=== PATIENT | male | born 1990 | race Caucasian/White ===

== ENCOUNTER 2016-09-08 20:28 | Emergency (ER) | payer OTHER ==
[~2016-09-08] VITALS: Ht 162.5 cm; Wt 108.9 kg
[~2016-09-08 20:28] MED LIST: AMOXICILLIN500 M2 PO; ANUSOL-HC25 MG RC; BACTRIM DS 8001 TA1 PO; FLOMAX0.4 MG PO; HYDROCODONE BIT1 T11 PO; IBU-8800 MG PO; MEDROL DOSEPAK4 MG PO; MOTRIN800 MG PO; Motrin,Rufen800 MG PO; NKHM; PRILOSEC20 MG PO; PYRIDIUM200 M1 PO; VICODIN ES 7501 TAB PO; ZANTAC 7575 M1 PO; ZITHROMAX Z PA250 MG PO; ZOFRAN ODT4 MG SL; ZYRTEC10 MG PO; Zofran4 MG PO
[2016-09-08 20:35] VITALS: BP 120/65
[2016-09-08] MEDS ORDERED: NAPROSYN500 MG PO (22:17)
== END 2016-09-08 23:03 | disposition home or self-care (01) ==
LOC: ED 20:28
DX: R07.9 Chest pain, unspecified (principal); Z87.442 Personal history of urinary calculi; F41.9 Anxiety disorder, unspecified

== ENCOUNTER 2017-02-26 18:24 | Emergency (ER) | payer OTHER ==
[~2017-02-26 18:24] MED LIST changes: +NAPROSYN500 MG PO
[2017-02-26 18:30] VITALS: BP 129/54
[2017-02-26] MEDS ORDERED: AMOXICILLIN500 M2 PO (19:00)
[2017-02-26] MEDS ORDERED: ZYRTEC10 MG PO (19:00)
== END 2017-02-26 19:04 | disposition home or self-care (01) ==
LOC: ED 18:24
DX: J01.90 Acute sinusitis, unspecified (principal)

== ENCOUNTER 2017-09-07 09:07 | Emergency (ER) | payer OTHER ==
[~2017-09-07] VITALS: Wt 113.4 kg
[2017-09-07 09:08] VITALS: BP 111/68
[2017-09-07] MEDS ORDERED: ROBAXIN500 M1 PO (10:10)
[2017-09-07] MEDS ORDERED: MOBIC7.5 MG PO (10:10)
[2017-09-07] MEDS ORDERED: RID COMPLETE 11 EACH TP (10:19)
== END 2017-09-07 11:20 | disposition home or self-care (01) ==
LOC: ED 09:07
DX: S13.4XXA Sprain of ligaments of cervical spine, initial encounter (principal); B85.2 Pediculosis, unspecified; X58.XXXA Exposure to other specified factors, initial encounter; Y93.89 Activity, other specified; Y92.89 Other specified places as the place of occurrence of the external cause; Y99.8 Other external cause status

== ENCOUNTER 2017-10-23 15:20 | Emergency (ER) | payer OTHER ==
[~2017-10-23] VITALS: Ht 160 cm; Wt 111.1 kg
[~2017-10-23 15:20] MED LIST changes: +MOBIC7.5 MG PO; +RID COMPLETE 11 EACH TP; +ROBAXIN500 M1 PO
[2017-10-23 15:22] VITALS: BP 121/87
[2017-10-23] MEDS ORDERED: SEPTDS PO (15:33)
[2017-10-23] MEDS ORDERED: KEFLEX500 M1 PO (15:33)
== END 2017-10-23 15:55 | disposition home or self-care (01) ==
LOC: ED 15:20
DX: L02.415 Cutaneous abscess of right lower limb (principal); G89.29 Other chronic pain; Z87.442 Personal history of urinary calculi

== ENCOUNTER 2018-04-26 09:44 | Emergency (ER) | payer SELFPAY ==
[~2018-04-26] VITALS: Ht 162.5 cm; Wt 113.4 kg
[~2018-04-26 09:44] MED LIST changes: +KEFLEX500 M1 PO; +SEPTDS PO
[2018-04-26 09:45] VITALS: BP 118/41
[2018-04-26] MEDS ORDERED: AMOXICILLIN500 M2 PO (10:50)
== END 2018-04-26 10:54 | disposition home or self-care (01) ==
LOC: ED 09:44
DX: J45.909 Unspecified asthma, uncomplicated (principal)

== ENCOUNTER 2018-07-13 09:15 | Emergency (ER) | payer SELFPAY ==
[~2018-07-13] VITALS: Ht 160 cm; Wt 113.4 kg
[2018-07-13 09:42] LABS: BASO # 0.1 10*3/uL (0.0-0.1); BASO % 0.7 % (0.0-1.0); EOS # 0.3 10*3/uL (0.0-0.4); EOS % 3.2 % (1.0-4.0); HEMOGLOBIN 16.1 g/dl (14.0-18.0); LYMPH # 1.9 10*3/uL (1.3-4.4); LYMPH % 20.5 % (27.0-41.0); MEAN CELL VOLUME 88.6 fl (80.0-94.0); MEAN CORPUSCULAR HGB 29.7 pg (27.0-31.0); MEAN CORPUSCULAR HGB CONC 33.5 g/dl (33.0-37.0); MEAN PLATELET VOLUME 9.7 fl (9.6-12.3); MONO # 0.9 10*3/uL (0.1-1.0); MONO % 9.6 % (3.0-9.0); NEUT % 65.5 % (47.0-73.0); PLATELET COUNT AUTOMATED 258 10*3/uL (130-400); RED BLOOD COUNT 5.42 10*6/uL (4.50-5.90); RED CELL DISTRI WIDTH 12.5 % (0-14.5); WHITE BLOOD COUNT 9.1 10*3/uL (4.8-10.8)
[2018-07-13 09:56] LABS: ALBUMIN 3.8 gm/dl (3.1-4.5); ALKALINE PHOSPHATASE 71 U/L (45-117); BUN 10 mg/dl (7-24); CHLORIDE 106 mmol/L (98-107); CREATININE 1.13 mg/dL (0.70-1.30); SGOT/AST 19 IU/L (3-35); SGPT/ALT 38 U/L (12-78); SODIUM 140 mmol/L (136-145); TOTAL PROTEIN 7.3 gm/dL (6.4-8.2)
[2018-07-13 10:32] LABS: BILIRUBIN NEGATIVE (NEGATIVE); BLOOD 3+ (NEGATIVE); CLARITY SL CLOUDY (CLEAR); COLOR YELLOW (YELLOW); GLUCOSE NEGATIVE (NEGATIVE); KETONE NEGATIVE (NEGATIVE); LEUKO ESTERASE NEGATIVE (NEGATIVE); NITRITE NEGATIVE (NEGATIVE); SPECIFIC GRAVITY >= 1.030 (1.005-1.030); UROBILINOGEN 0.2 E.U./dl (0.2-1.0)
[2018-07-13] MEDS ORDERED: PERCOCET 5-3251 EACH PO (10:37)
[2018-07-13] MEDS ORDERED: ZOFRAN4 MG PO (10:37)
[2018-07-13] MEDS ORDERED: SEPTDS PO (10:37)
[2018-07-13 10:46] VITALS: BP 128/51
[2018-07-13 10:48] LABS: BACTERIA 1+; MUCOUS 1+; RBC TNTC rbc/hpf (0-2)
== END 2018-07-13 10:55 | disposition home or self-care (01) ==
LOC: ED 09:15
PROVIDERS: Nurse Practitioner Family
DX: N13.2 Hydronephrosis with renal and ureteral calculous obstruction (principal); G89.29 Other chronic pain; F17.200 Nicotine dependence, unspecified, uncomplicated; Z87.442 Personal history of urinary calculi

== ENCOUNTER 2018-07-20 04:30 | Emergency (ER) | payer SELFPAY ==
[~2018-07-20 04:30] MED LIST changes: +PERCOCET 5-3251 EACH PO; +ZOFRAN4 MG PO
[2018-07-20 05:12] LABS: BASO # 0.1 10*3/uL (0.0-0.1); BASO % 0.5 % (0.0-1.0); EOS # 0.2 10*3/uL (0.0-0.4); EOS % 2.3 % (1.0-4.0); HEMATOCRIT 46.3 % (42.0-52.0); HEMOGLOBIN 15.7 g/dl (14.0-18.0); LYMPH # 1.7 10*3/uL (1.3-4.4); LYMPH % 16.7 % (27.0-41.0); MEAN CELL VOLUME 87.2 fl (80.0-94.0); MEAN CORPUSCULAR HGB 29.6 pg (27.0-31.0); MEAN CORPUSCULAR HGB CONC 33.9 g/dl (33.0-37.0); MEAN PLATELET VOLUME 9.7 fl (9.6-12.3); MONO % 9.2 % (3.0-9.0); NEUT # 7.3 10*3/uL (2.3-7.9); PLATELET COUNT AUTOMATED 236 10*3/uL (130-400); RED BLOOD COUNT 5.31 10*6/uL (4.50-5.90); RED CELL DISTRI WIDTH 12.5 % (0-14.5); WHITE BLOOD COUNT 10.3 10*3/uL (4.8-10.8)
[2018-07-20 05:31] LABS: BILIRUBIN NEGATIVE (NEGATIVE); BLOOD TRACE-LYSED (NEGATIVE); CLARITY CLEAR (CLEAR); COLOR YELLOW (YELLOW); GLUCOSE NEGATIVE (NEGATIVE); KETONE NEGATIVE (NEGATIVE); LEUKO ESTERASE NEGATIVE (NEGATIVE); NITRITE NEGATIVE (NEGATIVE); SPECIFIC GRAVITY 1.025 (1.005-1.030); UROBILINOGEN 0.2 E.U./dl (0.2-1.0)
[2018-07-20 05:37] LABS: ALBUMIN 4.1 gm/dl (3.1-4.5); ALKALINE PHOSPHATASE 60 U/L (45-117); BUN 14 mg/dl (7-24); CHLORIDE 100 mmol/L (98-107); CREATININE 1.23 mg/dL (0.70-1.30); POTASSIUM 3.7 mmol/L (3.5-5.1); SGOT/AST 19 IU/L (3-35); SGPT/ALT 45 U/L (12-78); SODIUM 135 mmol/L (136-145); TOTAL PROTEIN 7.9 gm/dL (6.4-8.2)
[2018-07-20 05:45] LABS: BACTERIA TRACE
[2018-07-20 05:54] VITALS: BP 117/56
== END 2018-07-20 06:05 | disposition home or self-care (01) ==
LOC: ED 04:30
PROVIDERS: Student in an Organized Health Care Education/Training Program
DX: N20.0 Calculus of kidney (principal); J45.909 Unspecified asthma, uncomplicated; G89.29 Other chronic pain; Z87.442 Personal history of urinary calculi

== ENCOUNTER 2019-09-02 22:49 | Emergency (ER) | payer SELFPAY ==
[~2019-09-02] VITALS: Ht 160 cm; Wt 100.7 kg
[2019-09-02 22:56] VITALS: BP 128/72
[2019-09-02] MEDS ORDERED: TAMIFLU 75MG CA75 MG PO (23:24)
== END 2019-09-02 23:45 | disposition home or self-care (01) ==
LOC: ED 22:49
DX: J06.9 Acute upper respiratory infection, unspecified (principal); J45.909 Unspecified asthma, uncomplicated; G89.29 Other chronic pain; F17.200 Nicotine dependence, unspecified, uncomplicated; Z87.442 Personal history of urinary calculi

== ENCOUNTER → 2019-09-12 | Outpatient (CLI) | payer SELFPAY ==
[~2019-09-12] MED LIST changes: +TAMIFLU 75MG CA75 MG PO
== END | disposition home or self-care (01) ==
LOC: RESCLI 12:34 → LAB 12:34
DX: J06.9 Acute upper respiratory infection, unspecified (principal); R06.02 Shortness of breath

== ENCOUNTER 2020-03-20 02:19 | Emergency (ER) | payer SELFPAY ==
[2020-03-20 02:27] VITALS: BP 118/80
[2020-03-20] MEDS ORDERED: PENICILLIN VK500 MG PO (02:31)
== END 2020-03-20 02:47 | disposition home or self-care (01) ==
LOC: ED 02:19
DX: K02.9 Dental caries, unspecified (principal); K08.89 Other specified disorders of teeth and supporting structures; Z79.899 Other long term (current) drug therapy

== ENCOUNTER → 2021-06-17 | Outpatient (CLI) | payer OTHER ==
[~2021-06-17] MED LIST changes: +PENICILLIN VK500 MG PO
== END | disposition home or self-care (01) ==
LOC: COVID19 16:34
PROVIDERS: ATTEND Internal Medicine
DX: U07.1 COVID-19 (principal)

== ENCOUNTER 2024-10-22 16:58 | Emergency (ER) | payer OTHER ==
[~2024-10-22] VITALS: Ht 162.5 cm; Wt 102.1 kg
[2024-10-22 17:21] VITALS: BP 122/42
[2024-10-22] MEDS ORDERED: Bacitracin Zinc 14 GM TUBE T ONE (17:30)
[2024-10-22] MEDS ORDERED: Doxycycline Hyclate 100 MG CAPSULE PO ONE (17:30)
== END 2024-10-22 17:28 | disposition home or self-care (01) ==
LOC: ED 16:58
DX: S30.861A Insect bite (nonvenomous) of abdominal wall, initial encounter (principal); Z79.899 Other long term (current) drug therapy; W57.XXXA Bitten or stung by nonvenomous insect and other nonvenomous arthropods, initial encounter; Y93.89 Activity, other specified; Y92.89 Other specified places as the place of occurrence of the external cause; Y99.8 Other external cause status

== ENCOUNTER 2024-12-22 13:56 | Emergency (ER) | payer OTHER ==
[~2024-12-22] VITALS: Ht 160 cm; Wt 97.5 kg
[2024-12-22] MEDS ORDERED: Tdap Vaccine 0.5 ML SYR (Adult Vaccine) IM ONE (15:05)
== END 2024-12-22 16:03 | disposition home or self-care (01) ==
LOC: ED 13:56
DX: S61.012A Laceration without foreign body of left thumb without damage to nail, initial encounter (principal); S61.211A Laceration without foreign body of left index finger without damage to nail, initial encounter; W27.0XXA Contact with workbench tool, initial encounter; Y93.89 Activity, other specified; Y92.89 Other specified places as the place of occurrence of the external cause; Y99.0 Civilian activity done for income or pay